=== PATIENT | male | born 1995 | race Caucasian/White ===

== ENCOUNTER 2023-01-24 09:29 | Outpatient (AMB) | payer OTHER, SELFPAY ==
--- NOTE | 2023-01-24 09:30 | MHC.PC.OV ---
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 Person Required: No Accompanied by: Significant Other Allergies No Known Allergies Allergy (Verified 01/24/23 09:52) Medication List - Last Reconciled 01/24/23 by Mouna Torres MD aripiprazole (Abilify) 5 mg PO DAILY clonazepam 0.5 mg PO BID dextroamphetamine-amphetamine 30 mg (Adderall) 30 mg PO BID gabapentin 100 mg PO TID lamotrigine 100 mg PO DAILY ondansetron HCl 8 mg PO Q8H Tobacco use date assessed: 01/24/23 Dental Screening Dental Screen Date: 01/24/23 Did you have a dental visit in the last 12 months?: Yes Did you have a dental problem in the last 6 months where you did not have access to dental care?: No Was dental information given to patient?: Patient has dentist HPI HPI Comments History of Present Illness Details This is 27-year-old male that comes with female partner to establish care. He was asking for a liver function test due to chronic alcoholism and drinking alcohol daily over 6 drinks a day. I recommend to cut down on drinking alcohol and I told him that nurse navigator was available for him to talk today about outpatient alcohol rehab but he declines. He does have severe recurrent major depression and anxiety follow by Psychiatry as well as ADD. He said he has been having Adderall since he is 2 years old. He said he cannot discontinue it because he does not function well. 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 He occasionally has nausea relieved by ondansetron. Occasional palpitations and would like to rule out cardiomegaly due to alcohol. No chest pain or shortness of breath. I told him that clonazepam and gabapentin mixed with alcohol can increase sedation and be detrimental for his health. [facility] Medical History (Updated 01/24/23 @ 10:06 by Mouna Torres MD) Neuropathy Surgical History (Updated 01/24/23 @ 09:55 by Mouna Torres MD) Right hand fracture Family History Mother Skin cancer Father No problems noted. 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 1. Little interest or pleasure in doing things: not at all 2. Feeling down, depressed, or hopeless: not at all 3. Trouble falling or staying asleep, or sleeping too much: nearly every day 4. Feeling tired or having little energy: nearly every day 5. Poor appetite or overeating: nearly every day 6. Feeling bad about yourself - or that you are a failure or have let yourself or your family down: nearly every day 7. Trouble concentrating on things, such as reading the newspaper or watching television: nearly every day 8. Moving or speaking so slowly that other people could have noticed. Or the opposite - being so fidgety or restless that you have been moving around a lot more than usual: nearly every day 9. Thoughts that you would be better off or of hurting yourself in some way: not at all Total score: 18 Depression Screening Interpretation: Positive (no suicidal thoughts) Depression Screening Follow-up: Existing condition and In treatment 14924 - PHQ-9 Billing: Yes Source: Developed by Drs. Vitor Palacios, Latanya Romero, Lizandro Barone and colleagues, with an educational rinku from [employer]. Thrive Questionnaire Date Thrive assessed: 01/24/23 I am a: Patient What is your living situation today?: I have a steady place to live Within the past 12 months, did the food you bought not last and you didn't have the money to get more?: Never true Within the past 12 months, did you worry whether your food would run out before you got money to buy more?: Never true Do you have trouble paying for medicines?: No Do you have trouble getting transportation to medical appointments?: No Do you have trouble paying your heating and electricity bill?: No Do you have trouble taking care of your child, family member or friend?: No Do you have trouble with day-to-day activities such as bathing, preparing meals, shopping, managing finances, etc.?: No Are you currently unemployed and looking for a job?: No Are you interested in more education?: No Please select the resources that you would like help with: Utilities Currently or been in a relationship where the following occur: no concerns reported AUDIT C Alcohol Use Questionnaire (AUDIT-C) 1. How often do you have a drink containing alcohol?: 4 or more times a week 2. How many drinks containing alcohol do you have on a typical day when you are drinking?: 7 to 9 (Vodka ) 3. How often do you have six or more drinks on one occasion?: Daily or almost daily Total Score: 11 Score Reviewed/Action Taken: Yes SRINIVAS-7 AMB Questionnaire SRINIVAS-7 Date SRINIVAS - 7 assessed: 01/24/23 Feeling nervous, anxious, or on edge: 3 = Nearly every day Not being able to stop or control worryin = Nearly every day Worrying too much about different things: 3 = Nearly every day Trouble relaxin = Nearly every day Being so restless that it is hard to sit still: 3 = Nearly every day Becoming easily annoyed or irritable: 3 = Nearly every day Feeling afraid as if something awful might happen: 3 = Nearly every day Total SRINIVAS-7 score (0-4 normal; 5-9 mild; 10-14 moderate; 15-21 severe): 21 Source: Developed by Drs. Vitor Palacios, Latanya Romero, Lizandro Barone and colleagues, with an educational rinku from [employer]. SRINIVAS-7 Assessment Billing SRINIVAS-7 Assessment Tool: SRINIVAS-7 Assessment 46856 Review of Systems Const All systems reviewed & are unremarkable except as noted in HPI and below Eyes Reports no additional complaints, Denies change in vision and Denies other visual disturbances Card Denies chest pain at rest, Denies chest pain with activity, Denies edema, Denies irregular heart rhythm, Denies claudication, Denies dyspnea, Denies dyspnea on exertion, Denies orthopnea, Denies paroxysmal nocturnal dyspnea and Denies slow heart rate Resp Denies cough, Denies dyspnea and Denies dyspnea on exertion GI Denies abdominal pain, Denies change in bowel habits, Denies excessive flatus, Denies nausea and Denies vomiting Denies urinary hesitancy, Denies urinary incontinence and Denies urinary urgency Musc Denies abnormal gait, Denies atrophy, Denies deformity and Denies limited range of motion Skin/Breast Denies bleeding lesions, Denies changing lesions and Denies rash Neuro Denies abnormal gait and Denies lack of coordination Psych Reports anxiety and Reports depression Physical exam (Primary Care) Vital Signs: Last Vital Signs Pulse 100 01/24/23 09:32 BP 112/68 01/24/23 09:32 Pulse Ox 98 01/24/23 09:32 Oxygen Delivery Method Room Air 01/24/23 09:32 BMI result Body Mass Index 29.9 Tobacco/Smoking Status: Tobacco use Status Tobacco use date assessed 01/24/23 01/24/23 09:48 Patient Tobacco Use Status Never used Tobacco 01/24/23 09:48 e-Cigarette/Vaping Use Currently Using 01/24/23 09:48 PHQ-9: PHQ-9 Score PHQ-9: Total score 18 01/24/23 09:48 Depression Screening Interpretation: Positive (no suicidal thoughts) Depression Screening Follow-up: Existing condition and In treatment Thrive Assessment: Date of Thrive Assessment Date Thrive assessed 01/24/23 01/24/23 09:48 Currently or been in a relationship where the following occur: no concerns reported Eyes General: appearance normal, both eyes and all related structures Eyelids: Yes eyelids normal Conjunctivae: conjunctivae normal Neck Neck: Yes normal visual inspection and Yes supple Resp Effort & Inspection: normal respiratory effort Auscultation: clear to auscultation bilaterally Cardio Jugular venous distension: no JVD Rate: regular rate Rhythm: regular rhythm Heart sounds: S1 normal heart sound present and S2 normal heart sound present Extrem General: Yes full ROM Psych Affect: Anxious affect present Attitude: cooperative Assessment and Plan Assessment & Plan (1) Severe recurrent major depression: Code(s): F33.2 - Major depressive disorder, recurrent severe without psychotic features Plan: Continue Abilify. Follow-up with psychiatry. (2) SRINIVAS (generalized anxiety disorder): Code(s): F41.1 - Generalized anxiety disorder Plan: Continue benzodiazepines as needed. Follow-up with psychiatry. Do not advised to use benzodiazepines with alcohol. (3) Alcoholism: Code(s): F10.20 - Alcohol dependence, uncomplicated Plan: Try to cut down on drinking alcohol. (4) ADD (attention deficit disorder): Code(s): F98.8 - Other specified behavioral and emotional disorders with onset usually occurring in childhood and adolescence Plan: Continue Adderall. Follow-up with psychiatry. (5) Nausea: Code(s): R11.0 - Nausea Plan: Continue ondansetron. (6) Neuropathy: Code(s): G62.9 - Polyneuropathy, unspecified Plan: Continue gabapentin. Do not advised to use gabapentin with alcohol. Orders: Orders Comprehensive Met. Panel Today F33.2 - Major depressive disorder, recurrent severe without psychotic features US abdomen comp w elastography Today F10.20 - Alcohol dependence, uncomplicated ECG 12 lead EKG Today R00.2 - Palpitations Coding Level of Care Code New Pt Level 4 (27656) Diagnoses Severe recurrent major depression F33.2 SRINIVAS (generalized anxiety disorder) F41.1 Alcoholism F10.20 ADD (attention deficit disorder) F98.8 Nausea R11.0 Neuropathy G62.9 Additional Codes SRINIVAS-7 Assessment Billing - SRINIVAS-7 Assessment Tool: SRINIVAS-7 Assessment 42335 ([id number]) Time Spent (min) 22
[2023-01-24 09:32] VITALS: BP 112/68; PULSE 100; O2SAT 98; BMI 29.9
== END 2023-01-24 10:08 | disposition home or self-care (01) ==
PROVIDERS: PCP Internal Medicine; Visit Provider Internal Medicine
DX: F33.2 Major depressive disorder, recurrent severe without psychotic features (principal); F41.1 Generalized anxiety disorder; F10.20 Alcohol dependence, uncomplicated; F98.8 Other specified behavioral and emotional disorders with onset usually occurring in childhood and adolescence; R11.0 Nausea; G62.9 Polyneuropathy, unspecified
CPT/HCPCS: 99204

== ENCOUNTER 2023-01-24 10:18 | Outpatient (REF) | payer OTHER, SELFPAY ==
--- NOTE | 2023-01-24 10:26 | ECG_ITS ---
Test Reason : r00.2 Blood Pressure : / mmHG Vent. Rate : 084 BPM Atrial Rate : 084 BPM P-R Int : 144 ms QRS Dur : 094 ms QT Int : 354 ms P-R-T Axes : 043 084 061 degrees QTc Int : 418 ms Normal sinus rhythm Normal ECG No previous ECGs available Referred By: Mouna Torres Electronically Signed By:Porfirio Thompson
[2023-01-24 12:00] LABS: Alanine Aminotransferase 52 U/L (0-40); Alkaline Phosphatase 84 U/L (39-117); Anion Gap 13 (12-20); Aspartate Amino Transferase 31 U/L (5-37); Bilirubin Total 0.4 mg/dL (0.0-1.0); Blood Urea Nitrogen 9 mg/dL (9-16); Calcium 9.3 mg/dL (8.4-10.2); Carbon Dioxide 27 mmol/L (22-29); Chloride 105 mmol/L (96-108); Estimated Glomerular Filt Rate > 60; Glucose Random 88 mg/dL (60-115); Potassium 3.9 mmol/L (3.3-5.1); Sodium 141 mmol/L (135-145); Total Protein 7.2 g/dL (6.5-8.0)
== END 2023-01-24 10:19 | disposition home or self-care (01) ==
LOC: HO.LAB 10:18
PROVIDERS: PCP Internal Medicine; Visit Provider Internal Medicine
DX: F33.2 Major depressive disorder, recurrent severe without psychotic features (principal); R00.2 Palpitations
CPT/HCPCS: 36415; 80053; 93005

== ENCOUNTER → 2023-01-24 10:26 | Outpatient (BNV) | payer OTHER, SELFPAY | PROVIDERS: PCP Internal Medicine; Visit Provider Internal Medicine Cardiovascular Disease | DX: R00.2 Palpitations (principal) | CPT/HCPCS: 93010 ==

== ENCOUNTER 2023-08-01 07:33 | Outpatient (AMB) | payer OTHER, SELFPAY ==
[2023-08-01 07:36] VITALS: BP 120/76; BMI 32.5
--- NOTE | 2023-08-01 07:36 | MHC.PC.OV ---
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 Accompanied by: partner Allergies No Known Allergies Allergy (Verified 08/01/23 07:48) Medication List - Last Reconciled 08/01/23 by Mouna Torres MD clonazepam 0.5 mg PO BID dextroamphetamine-amphetamine 30 mg (Adderall) 30 mg PO BID lamotrigine 100 mg PO DAILY Tobacco use date assessed: 08/01/23 Dental Screening Dental Screen Date: 08/01/23 Did you have a dental visit in the last 12 months?: No Did you have a dental problem in the last 6 months where you did not have access to dental care?: No Was dental information given to patient?: Patient has dentist HPI HPI Comments History of Present Illness Details This is a 28-year-old male with severe recurrent major depression and alcoholism that comes for his physical exam accompanied by girlfriend. He is follow by Psychiatry for his depression which he does not feel comfortable with his psychiatrist. No suicidal thoughts at the moment. He drinks alcohol daily since he is 14 years old. Started with 4 beers a day that has increased to 10 alcoholic drinks per day for the last few years. He does have occasional diarrhea and heartburn most likely secondary to alcohol. I advised to cut down on drinking alcohol. He is interested in rehab involving ketamine therapy or Vivitrol. I did send a message immediately to addiction Medicine specialist Terri Polanco and due to his elevated PHQ-9 behavioral health specialist [place] talk with him after the physical exam. [facility] Medical History Neuropathy Surgical History Right hand fracture Family History Mother Skin cancer Father No problems noted. Maternal Grandfather Lung cancer Maternal Grandmother Lung cancer Social History Housing: Apartment Alcohol intake: current Alcohol intake frequency: 3 or more drinks per day Alcohol type: hard liquor Patient Tobacco Use Status: Never used Tobacco e-Cigarette/Vaping Use: Currently Using service: No Current occupational status: unemployed Cognitive needs: No Hearing needs: No Vision needs: No Questionnaire PHQ-9 Over the last 2 weeks, how often have you been bothered by any of the following problems? 1. Little interest or pleasure in doing things: nearly every day 2. Feeling down, depressed, or hopeless: several days 3. Trouble falling or staying asleep, or sleeping too much: nearly every day 4. Feeling tired or having little energy: nearly every day 5. Poor appetite or overeating: nearly every day 6. Feeling bad about yourself - or that you are a failure or have let yourself or your family down: nearly every day 7. Trouble concentrating on things, such as reading the newspaper or watching television: nearly every day 8. Moving or speaking so slowly that other people could have noticed. Or the opposite - being so fidgety or restless that you have been moving around a lot more than usual: nearly every day 9. Thoughts that you would be better off or of hurting yourself in some way: not at all Total score: 22 Depression Screening Interpretation: Positive (no suicidal thoughts) Depression Screening Follow-up: Existing condition, In treatment and Community Mental Health Worker F/U Depression Screening Done: Yes 71416 - PHQ-9 Billing: Yes Source: Developed by Drs. Vitor Palacios, Latanya Romero, Lizandro Barone and colleagues, with an educational rinku from [employer]. Thrive Questionnaire Date Thrive assessed: 08/01/23 I am a: Patient What is your living situation today?: I have a steady place to live Within the past 12 months, did the food you bought not last and you didn't have the money to get more?: Never true Within the past 12 months, did you worry whether your food would run out before you got money to buy more?: Never true Do you have trouble paying for medicines?: No Do you have trouble getting transportation to medical appointments?: No Do you have trouble paying your heating and electricity bill?: No Do you have trouble taking care of your child, family member or friend?: No Do you have trouble with day-to-day activities such as bathing, preparing meals, shopping, managing finances, etc.?: No Are you currently unemployed and looking for a job?: No Are you interested in more education?: No Please select the resources that you would like help with: None Currently or been in a relationship where the following occur: no concerns reported THRIVE Score: 0 AUDIT C Alcohol Use Questionnaire (AUDIT-C) 1. How often do you have a drink containing alcohol?: 4 or more times a week 2. How many drinks containing alcohol do you have on a typical day when you are drinking?: 3 or 4 3. How often do you have six or more drinks on one occasion?: Never Total Score: 5 Score Reviewed/Action Taken: Yes SRINIVAS-7 AMB Questionnaire SRINIVAS-7 Date SRINIVAS - 7 assessed: 08/01/23 Feeling nervous, anxious, or on edge: 3 = Nearly every day Not being able to stop or control worryin = Several days Worrying too much about different things: 1 = Several days Trouble relaxin = Several days Being so restless that it is hard to sit still: 1 = Several days Becoming easily annoyed or irritable: 1 = Several days Feeling afraid as if something awful might happen: 0 = Not at all Total SRINIVAS-7 score (0-4 normal; 5-9 mild; 10-14 moderate; 15-21 severe): 8 Source: Developed by Drs. Vitor Palacios, Latanya Romero, Lizandro Barone and colleagues, with an educational rinku from [employer]. SRINIVAS-7 Assessment Billing SRINIVAS-7 Assessment Tool: SRINIVAS-7 Assessment 85330 Review of Systems Const All systems reviewed & are unremarkable except as noted in HPI and below Eyes Reports no additional complaints, Denies change in vision and Denies other visual disturbances Card Denies chest pain at rest, Denies chest pain with activity, Denies edema, Denies irregular heart rhythm, Denies claudication, Denies dyspnea, Denies dyspnea on exertion, Denies orthopnea, Denies paroxysmal nocturnal dyspnea and Denies slow heart rate Resp Denies cough, Denies dyspnea and Denies dyspnea on exertion GI Denies abdominal pain, Denies change in bowel habits, Denies excessive flatus, Reports heartburn, Denies nausea and Denies vomiting Denies urinary hesitancy, Denies urinary incontinence and Denies urinary urgency Musc Denies abnormal gait, Denies atrophy, Denies deformity and Denies limited range of motion Skin/Breast Denies bleeding lesions, Denies changing lesions and Denies rash Neuro Denies abnormal gait and Denies lack of coordination Physical exam (Primary Care) Vital Signs: Last Vital Signs BP 120/76 08/01/23 07:36 BMI result Body Mass Index 32.5 Tobacco/Smoking Status: Tobacco use Status Tobacco use date assessed 08/01/23 08/01/23 07:46 Patient Tobacco Use Status Never used Tobacco 08/01/23 07:46 e-Cigarette/Vaping Use Currently Using 08/01/23 07:46 PHQ-9: PHQ-9 Score PHQ-9: Total score 22 08/01/23 08:47 Depression Screening Interpretation: Positive (no suicidal thoughts) Depression Screening Follow-up: Existing condition, In treatment and Community Mental Health Worker F/U Thrive Assessment: Date of Thrive Assessment Date Thrive assessed 08/01/23 08/01/23 07:46 Currently or been in a relationship where the following occur: no concerns reported Const Orientation/consciousness: patient oriented x3 HENMT Head: Yes normal to inspection, Yes normocephalic and Yes atraumatic Ears: external ears normal Eyes General: appearance normal, both eyes and all related structures Eyelids: Yes eyelids normal Conjunctivae: conjunctivae normal Neck Neck: Yes normal visual inspection and Yes supple Resp Effort & Inspection: normal respiratory effort Auscultation: clear to auscultation bilaterally Cardio Jugular venous distension: no JVD Rate: regular rate Rhythm: regular rhythm Heart sounds: S1 normal heart sound present and S2 normal heart sound present GI Inspection: Yes normal to inspection Palpation (GI): Soft to palpation and nontender Auscultation: normal bowel sounds Skin General skin exam: no rashes or lesions noted Neuro General: patient oriented x3 and no focal motor deficits Extrem General: Yes full ROM Psych Appearance: grossly normal Assessment and Plan Assessment & Plan (1) Physical exam: Code(s): Z00.00 - Encounter for general adult medical examination without abnormal findings Plan: Repeat in a year. (2) Severe recurrent major depression: Code(s): F33.2 - Major depressive disorder, recurrent severe without psychotic features Qualifiers: Psychotic features: without psychotic features Qualified Code(s): F33.2 - Major depressive disorder, recurrent severe without psychotic features Plan: Follow-up with psychiatry. (3) Alcoholism: Code(s): F10.20 - Alcohol dependence, uncomplicated Plan: Advised to cut down on drinking alcohol. Patient is aware that there is an outpatient rehab at [facility]. Waiting for response from Terri Polanco. Orders: Orders Lipid Panel Today Z00.00 - Encounter for general adult medical examination without abnormal findings Comprehensive [place]. Panel Fast Today Z00.00 - Encounter for general adult medical examination without abnormal findings Vitamin B1 Today F10.20 - Alcohol dependence, uncomplicated Complete Blood Count Auto Diff Today D64.9 - Anemia, unspecified, G62.9 - Polyneuropathy, unspecified Vitamin B12 and Folate Today G62.9 - Polyneuropathy, unspecified US abdomen comp w elastography Today F10.20 - Alcohol dependence, uncomplicated Referrals Gastroenterology Referral K21.9 - Gastro-esophageal reflux disease without esophagitis Coding Level of Care Code Est Pt Prev Care 18-39y([id number]) Diagnoses Physical exam Z00.00 Severe episode of recurrent major depressive disorder, without psychotic features F33.2 Psychotic features: without psychotic features Alcoholism F10.20 Additional Codes SRINIVAS-7 Assessment Billing - SRINIVAS-7 Assessment Tool: SRINIVAS-7 Assessment 19070 ([id number]) Time Spent (min) 35
== END 2023-08-01 08:41 | disposition home or self-care (01) ==
PROVIDERS: PCP Internal Medicine; Visit Provider Internal Medicine
DX: Z00.00 Encounter for general adult medical examination without abnormal findings (principal); F33.2 Major depressive disorder, recurrent severe without psychotic features; F10.20 Alcohol dependence, uncomplicated
CPT/HCPCS: 99395

== ENCOUNTER 2023-08-01 09:42 | Outpatient (AMB) | payer OTHER, SELFPAY ==
[2023-08-01 09:50] VITALS: BP 120/80; PULSE 96; O2SAT 96
--- NOTE | 2023-08-01 09:50 | A.OFFVISCC_ITS ---
Intake Vital Signs 08/01/23 09:50 BP 120/80 Blood Pressure Location Rt radial Position Sitting Pulse 96 Pulse Source Pulse Oximeter Pulse Oximetry (%) 96 Oxygen Delivery Method Room Air Intake Visit Reasons: Walk in Allergies No Known Allergies Allergy (Verified 08/01/23 07:48) HPI Walk in HPI Details Patient presents for AUD treatment and eval Drinking 10 nips per day previously drinking 3-4 sleeves per day starting to taper himself 1-2 no history of treatment ATS Naltrexone prescribed by psychiatrist No history of seizure history tremors, anxiety Reporting he feels like he is unable to function or tallk to anyone without having alcohol Lives with Jose Miguel (partner) 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 Maternal Grandfather Lung cancer Maternal Grandmother Lung cancer Social History Housing: Apartment Alcohol intake: current Alcohol intake frequency: 3 or more drinks per day Alcohol type: hard liquor Patient Tobacco Use Status: Never used Tobacco e-Cigarette/Vaping Use: Currently Using service: No Current occupational status: unemployed Cognitive needs: No Hearing needs: No Vision needs: No Review of Systems Const Reports difficulty sleeping, Reports lethargy, Reports malaise and Reports poor appetite Psych Reports anxiety, Reports depression, Reports difficulty concentrating and Reports anhedonia Physical Exam Vital Signs: Last Vital Signs Pulse 96 08/01/23 09:50 BP 120/80 08/01/23 09:50 Pulse Ox 96 08/01/23 09:50 Oxygen Delivery Method Room Air 08/01/23 09:50 Const General: cooperative, no acute distress and anxious Nutritional Appearance: average body habitus Orientation/consciousness: patient oriented x3 Limitations: no limitations Neuro General: patient oriented x3 Psych Affect: normal affect Attitude: cooperative Thought process: Normal thought process present Thought content: Normal thought content present Insight: Fair insight present (Psych) Judgement: Fair judgement present (Psych) Results AMB 14 Panel Urine Drug Screen Urine Marijuana (THC) Positive Last Edit by Danae Maharaj RN on 08/01/23 09:58 Urine Cocaine Negative Last Edit by Danae Maharaj RN on 08/01/23 09:58 Urine Morphine Negative Last Edit by Danae Maharaj RN on 08/01/23 09:58 Urine Methamphetamine Negative Last Edit by Danae Maharaj RN on 08/01/23 09:58 Urine Amphetamine Positive Last Edit by Danae Maharaj RN on 08/01/23 09:58 Urine Benzodiazepine Negative Last Edit by Danae Maharaj RN on 08/01/23 09 :58 Urine Barbiturates Negative Last Edit by Danae Maharaj RN on 08/01/23 09:5 8 Urine Methadone Negative Last Edit by Danae Maharaj RN on 08/01/23 09:58 Urine Buprenorphine Negative Last Edit by Danae Maharaj RN on 08/01/23 09: 58 Urine Tricyclic Antidepressant Negative Last Edit by Danae Maharaj RN on 08/01/23 09:58 Urine MDMA Negative Last Edit by Danae Maharaj RN on 08/01/23 09:58 Urine Oxycodone Negative Last Edit by Danae Maharaj RN on 08/01/23 09:58 Urine Phencyclidine Negative Last Edit by Danae Maharaj RN on 08/01/23 09: 58 Urine Propoxyphene Negative Last Edit by Danae Maharaj RN on 08/01/23 09:5 8 Results Reviewed Results Reviewed: Laboratory Last Values POC Urine Buprenorphine Negative 08/01/23 09:56 POC Urine Morphine Negative 08/01/23 09:56 POC Urine Oxycodone Negative 08/01/23 09:56 POC Urine Methadone Negative 08/01/23 09:56 POC Urine Propoxyphene Negative 08/01/23 09:56 POC Urine Barbiturates Negative 08/01/23 09:56 POC U Tricyclic Antidpr Negative 08/01/23 09:56 POC Urine PCP Negative 08/01/23 09:56 POC Ur Amphetamines Positive 08/01/23 09:56 POC Ur Methamphetamine Negative 08/01/23 09:56 POC Urine MDMA Negative 08/01/23 09:56 POC Ur Benzodiazepine Negative 08/01/23 09:56 POC Urine Cocaine Negative 08/01/23 09:56 POC Ur Marijuana (THC) Positive 08/01/23 09:56 Assessment & Plan Assessment & Plan (1) Alcohol use disorder, severe, dependence: Code(s): F10.20 - Alcohol dependence, uncomplicated Plan: * treatment options presented to patient, including ATS admission. Patient verbalzied interest in admission, however wouldhave to go home and prep for that * provided with list of ATS facilities and other information * naltrexone and vitamins ordered * risk reduction information provided * patient to follow up Orders: Orders AMB 14 Panel Urine Drug Screen 08/01/23 F10.20 - Alcohol dependence, uncomplicated Medications: New thiamine HCl (vitamin B1) 100 mg PO DAILY 30 tabs 2RF naltrexone take 1/2 tab daily for 3 days then increase to one tab daily 50 mg PO DAILY 30 tabs 0RF folic acid 1 mg PO DAILY 30 tabs 2RF Coding Level of Care Code New Pt Level 4 (24104) Diagnoses Alcohol use disorder, severe, dependence F10.20
== END 2023-08-01 10:23 | disposition home or self-care (01) ==
PROVIDERS: PCP Internal Medicine; Visit Provider Nurse Practitioner Psychiatric/Mental Health
DX: F10.20 Alcohol dependence, uncomplicated (principal)
CPT/HCPCS: 99204

== ENCOUNTER → 2023-08-01 09:42 | Outpatient (BNVA) | payer OTHER, SELFPAY | PROVIDERS: PCP Internal Medicine; Visit Provider Nurse Practitioner Psychiatric/Mental Health | DX: F10.20 Alcohol dependence, uncomplicated (principal) | CPT/HCPCS: 80305; 99202 ==

== ENCOUNTER 2023-08-16 14:34 | Outpatient (AMB) | payer OTHER, SELFPAY ==
--- NOTE | 2023-08-16 14:36 | MHC.AM.SUB ---
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 Allergies No Known Allergies Allergy (Verified 08/16/23 14:43) Medication List - Last Reconciled 08/16/23 by Magali Pérez, CLIVE clonazepam 1 mg PO BID dextroamphetamine-amphetamine 30 mg (Adderall) 30 mg PO BID folic acid 1 mg PO DAILY gabapentin 200 mg PO BID lamotrigine 100 mg PO DAILY naltrexone 50 mg PO DAILY thiamine HCl (vitamin B1) 100 mg PO DAILY Do you need a note to return to daycare/school/sports/work: No HPI MAT HPI Details Patient presents for follow up for AUD His last visit was 2 weeks ago, he has been taking the naltrexone daily, tolerating it well He is interested in a middle school coach at this time He is also interested in [facility] referral. Reports his current psych provider speaks Romansh as a second language and he feels as though some things are lost in translation He was previously drinking a sleeve of nips a day, he has transitioned to drinking beer only, states he drinks 2 40oz beers daily. Denies any withdrawal symptoms [facility] Medical History Neuropathy Surgical History Right hand fracture Family History Mother Skin cancer Father No problems noted. Maternal Grandfather Lung cancer Maternal Grandmother Lung cancer Social History Housing: Apartment Alcohol intake: current Alcohol intake frequency: 3 or more drinks per day Alcohol type: hard liquor Patient Tobacco Use Status: Never used Tobacco e-Cigarette/Vaping Use: Currently Using service: No Current occupational status: unemployed Cognitive needs: No Hearing needs: No Vision needs: No Review of Systems Const Reports as per HPI Physical Exam Vital Signs: Last Vital Signs Pulse 112 H 08/16/23 14:41 BP 110/70 08/16/23 14:41 Pulse Ox 96 08/16/23 14:41 Oxygen Delivery Method Room Air 08/16/23 14:41 Const General: cooperative and no acute distress; No diaphoretic Resp Effort & Inspection: normal respiratory effort Psych Appearance: grossly normal Mental Status: mental status grossly normal Speech and movement: Normal speech and movement present Affect: Blunted affect present Attitude: cooperative Thought content: Normal thought content present Assessment & Plan Assessment & Plan (1) Alcohol use disorder, severe, dependence: Code(s): F10.20 - Alcohol dependence, uncomplicated Plan: -Discussed harm reduction strategies -Educated on importance and rationale for taking B vitamins -Reviewed with him not to try and taper too quickly -He is going to transition from 40oz beers to a six pack or 12oz beers for more precise measurements for tapering down -Discussed vivitrol with him, he would like to continue with PO naltrexone -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
[2023-08-16 14:41] VITALS: BP 110/70; PULSE 112; O2SAT 96
== END 2023-08-16 15:44 | disposition home or self-care (01) ==
PROVIDERS: PCP Internal Medicine; Visit Provider Nurse Practitioner Family
DX: F10.20 Alcohol dependence, uncomplicated (principal)
CPT/HCPCS: 99213

== ENCOUNTER → 2023-08-16 14:34 | Outpatient (BNVA) | payer OTHER, SELFPAY | PROVIDERS: PCP Internal Medicine; Visit Provider Nurse Practitioner Family | DX: F10.20 Alcohol dependence, uncomplicated (principal); Z79.899 Other long term (current) drug therapy | CPT/HCPCS: 99212 ==

== ENCOUNTER 2023-10-24 14:38 | Outpatient (AMB) | payer OTHER, SELFPAY ==
--- NOTE | 2023-10-24 14:38 | A.OFFVISCC_ITS ---
Vital Signs 10/24/23 14:40 BP 132/78 Blood Pressure Location Lt brachial Position Sitting Pulse 110 H Pulse Source Pulse Oximeter Pulse Oximetry (%) 96 Oxygen Delivery Method Room Air Intake Visit Reasons: MAT Visit Allergies No Known Allergies Allergy (Verified 08/16/23 14:43) HPI HPI MAT Visit: Details: Patient presents for MAT visit Reports he has been doing well, abstaining from alcohol Is hosting a bachelor constitution party this weekend, and is concerned he will be unable to resist having a drink States he has done extensive research on disulfiram and would like a script as a deterent and reassurance to himself that he won't drink States he has 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 Maternal Grandfather Lung cancer Maternal Grandmother Lung cancer Social History Housing: Apartment Alcohol intake: current Alcohol intake frequency: 3 or more drinks per day A lcohol type: hard liquor Patient Tobacco Use Status: Never used Tobacco e-Cigarette/Vaping Use: Currently Using service: No Current occupational status: unemployed Cognitive needs: No Hearing needs: No Vision needs: No Review of Systems Const Reports as per HPI Physical Exam Vital Signs: Last Vital Signs Pulse 110 H 10/24/23 14:40 BP 132/78 10/24/23 14:40 Pulse Ox 96 10/24/23 14:40 Oxygen Delivery Method Room Air 10/24/23 14:40 Const General: cooperative and no acute distress Resp Effort & Inspection: normal respiratory effort and able to speak in complete sentences Psych Appearance: grossly normal Mental Status: mental status grossly normal Speech and movement: Normal speech and movement present Affect: normal affect Attitude: cooperative Thought process: Normal thought process present Assessment & Plan Assessment & Plan (1) Alcohol use disorder, severe, dependence: Code(s): F10.20 - Alcohol dependence, uncomplicated Category: Medical Plan: -Start disulfiram 250mg day, education provided on risk of drinking alcohol, using mouthwash with alcohol, or even alcohol based 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
[2023-10-24 14:40] VITALS: BP 132/78; PULSE 110; O2SAT 96
== END 2023-10-24 15:14 | disposition home or self-care (01) ==
PROVIDERS: PCP Internal Medicine; Visit Provider Nurse Practitioner Family
DX: F10.20 Alcohol dependence, uncomplicated (principal)
CPT/HCPCS: 99213

== ENCOUNTER → 2023-10-24 14:38 | Outpatient (BNVA) | payer OTHER, SELFPAY | PROVIDERS: PCP Internal Medicine; Visit Provider Nurse Practitioner Family | DX: F10.20 Alcohol dependence, uncomplicated (principal) | CPT/HCPCS: 99212 ==

== ENCOUNTER 2023-11-07 14:46 | Outpatient (AMB) | payer OTHER, SELFPAY ==
[2023-11-07 14:43] VITALS: BP 130/82; PULSE 113; O2SAT 96
--- NOTE | 2023-11-07 14:43 | A.OFFVISCC_ITS ---
Vital Signs 11/07/23 14:43 BP 130/82 Blood Pressure Location Lt brachial Position Sitting Pulse 113 H Pulse Source Pulse Oximeter Pulse Oximetry (%) 96 Oxygen Delivery Method Room Air Intake Visit Reasons: MAT Visit Allergies No Known Allergies Allergy (Verified 08/16/23 14:43) HPI HPI MAT Visit: Details: Patient presents for AUD treatment and follow up States he has been unable to obtain his antabuse, has been told by multiple pharmacies that the medication is on back order Reports he had mistakenly believed the vivitrol injection was antabuse, but would like to move forward with receiving vivitrol States he did not drink during the bachelor libertarian a few weekends ago, this had been a significant concern of his Has been keeping busy with work HPI Comments Details: Patient presents for MAT visit [facility] Medical History Neuropathy Surgical History Right hand fracture Family History Mother Skin cancer Father No problems noted. Maternal Grandfather Lung cancer Maternal Grandmother Lung cancer Social History Housing: Apartment Alcohol intake: current Alcohol intake frequency: 3 or more drinks per day Alcohol type: hard liquor Patient Tobacco Use Status: Never used Tobacco e-Cigarette/Vaping Use: Currently Using service: No Current occupational status: unemployed Cognitive needs: No Hearing needs: No Vision needs: No Review of Systems Const Reports as per HPI Physical Exam Vital Signs: Last Vital Signs Pulse 113 H 11/07/23 14:43 BP 130/82 11/07/23 14:43 Pulse Ox 96 11/07/23 14:43 Oxygen Delivery Method Room Air 11/07/23 14:43 Const General: cooperative and no acute distress Resp Effort & Inspection: normal respiratory effort and able to speak in complete sentences Psych Appearance: grossly normal Mental Status: mental status grossly normal Speech and movement: Normal speech and movement present Affect: Blunted affect present Attitude: cooperative Thought process: Normal thought process present Assessment & Plan Assessment & Plan (1) Alcohol use disorder, severe, dependence: Code(s): F10.20 - Alcohol dependence, uncomplicated Category: Medical Plan: -Naltrexone refilled -Follow up telehealth 3 weeks, expressed to him office would call to arrange an appointment sooner if his injection arrives prior to next appt Medications: Refilled naltrexone 50 mg PO DAILY 30 tabs 0RF
== END 2023-11-07 15:01 | disposition home or self-care (01) ==
LOC: HO.HCC 14:46
PROVIDERS: PCP Internal Medicine; Visit Provider Nurse Practitioner Family
DX: F10.20 Alcohol dependence, uncomplicated (principal)
CPT/HCPCS: 99213

== ENCOUNTER → 2023-11-07 14:46 | Outpatient (BNVA) | payer OTHER, SELFPAY | PROVIDERS: PCP Internal Medicine; Visit Provider Nurse Practitioner Family | DX: F10.20 Alcohol dependence, uncomplicated (principal); Z79.899 Other long term (current) drug therapy; Z51.81 Encounter for therapeutic drug level monitoring | CPT/HCPCS: 99212 ==

== ENCOUNTER 2024-04-09 09:57 | Outpatient (AMB) | payer OTHER, SELFPAY ==
[2024-04-09 09:59] VITALS: BP 146/100; BMI 31.8
--- NOTE | 2024-04-09 09:59 | MHC.PC.OV ---
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 Accompanied by: Significant Other Allergies No Known Allergies Allergy (Verified 04/09/24 10:16) Medication List - Last Reconciled 04/09/24 by Mouna Torres MD clonazepam 1 mg PO BID dextroamphetamine-amphetamine 30 mg (Adderall) 30 mg PO BID folic acid 1 mg PO DAILY gabapentin 200 mg PO BID lamotrigine 100 mg PO DAILY methylprednisolone 2 mg PO DAILY naltrexone 50 mg PO DAILY naltrexone microspheres ER (Vivitrol) 380 mg IM Q4W thiamine HCl (vitamin B1) 100 mg PO DAILY Tobacco use date assessed: 08/01/23 Dental Screening Dental Screen Date: 08/01/23 HPI HPI Comments History of Present Illness Details This is a 29-year-old male with severe recurrent major depression, anxiety,ADD and alcohol use disorder with severe dependence that comes today complaining of daytime sleepiness. 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 Sleep study will be ordered. He is accompanied by significant other. Depression, anxiety and ADD are treated by Psychiatry. For his alcohol use he will see [facility] for Vivitrol. He was advised to stop drinking alcohol. [facility] Medical History (Updated 04/09/24 @ 10:29 by Mouna Torres MD) Neuropathy Surgical History Right hand fracture Family History Mother Skin cancer Father No problems noted. Maternal Grandfather Lung cancer Maternal Grandmother Lung cancer Social History (Updated 04/09/24 @ 10:25 by Mouna Torres MD) Housing: Apartment Alcohol intake: current Alcohol intake frequency: 3 or more drinks per day Alcohol type: hard liquor Patient Tobacco Use Status: Former Tobacco user e-Cigarette/Vaping Use: Currently Using service: No Current occupational status: unemployed Cognitive needs: No Hearing needs: No Vision needs: No Questionnaire PHQ-9 Over the last 2 weeks, how often have you been bothered by any of the following problems? 1. Little interest or pleasure in doing things: nearly every day 2. Feeling down, depressed, or hopeless: several days 3. Trouble falling or staying asleep, or sleeping too much: nearly every day 4. Feeling tired or having little energy: nearly every day 5. Poor appetite or overeating: nearly every day 6. Feeling bad about yourself - or that you are a failure or have let yourself or your family down: nearly every day 7. Trouble concentrating on things, such as reading the newspaper or watching television: nearly every day 8. Moving or speaking so slowly that other people could have noticed. Or the opposite - being so fidgety or restless that you have been moving around a lot more than usual: nearly every day 9. Thoughts that you would be better off or of hurting yourself in some way: not at all Total score: 22 Depression Screening Interpretation: Positive (no suicidal thoughts) Depression Screening Follow-up: Existing condition, In treatment, Community Mental Health Worker F/U and Follow-up Visit Requested Depression Screening Done: Yes 25866 - PHQ-9 Billing: Yes Source: Developed by Drs. Vitor Palacios, Latanya Romero, Lizandro Barone and colleagues, with an educational rinku from [employer]. Thrive Questionnaire Date Thrive assessed: 08/01/23 AUDIT C Alcohol Use Questionnaire (AUDIT-C) 1. How often do you have a drink containing alcohol?: 4 or more times a week 2. How many drinks containing alcohol do you have on a typical day when you are drinking?: 10 or more 3. How often do you have six or more drinks on one occasion?: Daily or almost daily Total Score: 12 Score Reviewed/Action Taken: Yes SRINIVAS-7 AMB Questionnaire SRINIVAS-7 Date SRINIVAS - 7 assessed: 08/01/23 Source: Developed by Drs. Vitor Palacios, Latanya Romero, Lizandro Barone and colleagues, with an educational rinku from [employer]. Review of Systems Const All systems reviewed & are unremarkable except as noted in HPI and below Card Denies chest pain at rest, Denies chest pain with activity, Denies edema, Denies irregular heart rhythm, Denies claudication, Denies dyspnea, Denies dyspnea on exertion, Denies orthopnea, Denies paroxysmal nocturnal dyspnea and Denies slow heart rate Resp Denies cough, Denies dyspnea and Denies dyspnea on exertion Denies urinary hesitancy, Denies urinary incontinence and Denies urinary urgency Musc Denies atrophy, Denies deformity and Denies limited range of motion Skin/Breast Denies bleeding lesions, Denies changing lesions and Denies rash Physical exam (Primary Care) Vital Signs: Last Vital Signs BP 146/100 H 04/09/24 09:59 BMI result Body Mass Index 31.8 BMI Assessment/Plan discussion: High BMI High, discussed plan: lifestyle, weight reduction, dietary and physical activity Tobacco/Smoking Status: Tobacco use Status Tobacco use date assessed 08/01/23 04/09/24 10:07 Patient Tobacco Use Status Former Tobacco user 04/09/24 10:25 e-Cigarette/Vaping Use Currently Using 04/09/24 10:25 PHQ-9: PHQ-9 Score PHQ-9: Total score 22 04/09/24 10:18 Depression Screening Interpretation: Positive (no suicidal thoughts) Depression Screening Follow-up: Existing condition, In treatment, Community Mental Health Worker F/U and Follow-up Visit Requested Thrive Assessment: Date of Thrive Assessment Date Thrive assessed 08/01/23 04/09/24 10:07 Resp Effort & Inspection: normal respiratory effort Auscultation: clear to auscultation bilaterally Cardio Jugular venous distension: no JVD Rate: regular rate Rhythm: regular rhythm Heart sounds: S1 normal heart sound present and S2 normal heart sound present Extrem General: Yes full ROM Office Procedures Flu Questionnaire Does the patient have a severe egg allergy?: No Immunizations Fluarix Triv [id number] (PF) 45 mcg (15 mcg x 3)/0.5 mL IM syringe Performing Provider: Mouna Torres MD [facility] Documented (not given) by: OLEG Lopez on 04/09/24 10:13 Reason Not Given: Patient Refused Coding Level of Care Code Est Pt Level 4 (53062) Complex EM visit Add On G2211 Diagnoses Alcohol use disorder, severe, dependence F10.20 Daytime sleepiness R40.0 Severe episode of recurrent major depressive disorder, without psychotic features F33.2 Psychotic features: without psychotic features ADD (attention deficit disorder) F98.8 SRINIVAS (generalized anxiety disorder) F41.1 Time Spent (min) 22 Assessment & Plan Assessment & Plan (1) Alcohol use disorder, severe, dependence: Code(s): F10.20 - Alcohol dependence, uncomplicated Category: Medical Plan: Follow-up with [facility]. (2) Daytime sleepiness: Code(s): R40.0 - Somnolence Category: Medical Plan: Sleep study ordered (3) Severe recurrent major depression: Code(s): F33.2 - Major depressive disorder, recurrent severe without psychotic features Category: Medical Qualifiers: Psychotic features: without psychotic features Qualified Code(s): F33.2 - Major depressive disorder, recurrent severe without psychotic features Plan: Follow-up with psychiatry. (4) ADD (attention deficit disorder): Code(s): F98.8 - Other specified behavioral and emotional disorders with onset usually occurring in childhood and adolescence Category: Medical Plan: Follow-up with psychiatry. (5) SRINIVAS (generalized anxiety disorder): Code(s): F41.1 - Generalized anxiety disorder Category: Medical Plan: Follow-up with psychiatry. Orders: Orders Influenza [id number] Immunization Today Z23 - Encounter for immunization US abdomen comp w elastography Today F10.20 - Alcohol dependence, uncomplicated Vitamin B12 and Folate Today G62.9 - Polyneuropathy, unspecified Comprehensive Met. Panel Today G62.9 - Polyneuropathy, unspecified Complete Blood Count Auto Diff Today G62.9 - Polyneuropathy, unspecified RT home sleep study Today R40.0 - Somnolence Vitamin B1 Today F10.20 - Alcohol dependence, uncomplicated Liver Panel Today F10.20 - Alcohol dependence, uncomplicated Gamma Glutamyl Transpeptidase Today F10.20 - Alcohol dependence, uncomplicated Medications: Refilled naltrexone microspheres ER (Vivitrol) 380 mg IM Q4W 1 ea 12RF naltrexone 50 mg PO DAILY 30 tabs 0RF folic acid 1 mg PO DAILY 30 tabs 2RF thiamine HCl (vitamin B1) 100 mg PO DAILY 30 tabs 2RF
== END 2024-04-09 10:35 | disposition home or self-care (01) ==
PROVIDERS: PCP Internal Medicine; Visit Provider Internal Medicine
DX: F10.20 Alcohol dependence, uncomplicated (principal); R40.0 Somnolence; F33.2 Major depressive disorder, recurrent severe without psychotic features; F98.8 Other specified behavioral and emotional disorders with onset usually occurring in childhood and adolescence; F41.1 Generalized anxiety disorder; Z23 Encounter for immunization

== ENCOUNTER → 2024-04-09 09:57 | Outpatient (BNVA) | payer OTHER, SELFPAY | PROVIDERS: PCP Internal Medicine; Visit Provider Internal Medicine | DX: F10.20 Alcohol dependence, uncomplicated (principal); R40.0 Somnolence; F33.2 Major depressive disorder, recurrent severe without psychotic features; F98.8 Other specified behavioral and emotional disorders with onset usually occurring in childhood and adolescence; F41.1 Generalized anxiety disorder; Z28.21 Immunization not carried out because of patient refusal | CPT/HCPCS: 90471; 96127; 99212 ==

== ENCOUNTER → 2024-06-12 11:13 | Outpatient (REF) | payer OTHER, SELFPAY | LOC: HO.SL 11:13 | PROVIDERS: PCP Internal Medicine; Visit Provider Internal Medicine | DX: G47.33 Obstructive sleep apnea (adult) (pediatric) (principal) | CPT/HCPCS: 95806 ==

== ENCOUNTER → 2024-06-13 11:21 | Outpatient (BNV) | payer OTHER, SELFPAY | PROVIDERS: PCP Internal Medicine; Visit Provider Internal Medicine | DX: G47.33 Obstructive sleep apnea (adult) (pediatric) (principal) | CPT/HCPCS: 95806 ==

== ENCOUNTER 2024-08-05 17:40 | Outpatient (AMB) | payer OTHER, SELFPAY ==
--- NOTE | 2024-08-05 17:42 | MHC.PC.OV ---
Vital Signs 08/05/24 17:45 Height 5 ft 6.54 in Weight 201 lb BMI 31.9 BP 130/80 Blood Pressure Location Lt brachial Position Sitting Intake Visit Reasons: PE Intake Note: Patient here for a physical exam Shank Skinner Required: No Accompanied by: Self / Same As Patient Allergies No Known Allergies Allergy (Verified 08/05/24 17:50) Medication List - Last Reconciled 08/05/24 by Mouna Torres MD clonazepam 1 mg PO BID dextroamphetamine-amphetamine 30 mg (Adderall) 30 mg PO BID gabapentin 200 mg PO BID lamotrigine 100 mg PO DAILY Tobacco use date assessed: 08/05/24 Dental Screening Dental Screen Date: 08/01/23 Did you have a dental visit in the last 12 months?: No Did you have a dental problem in the last 6 months where you did not have access to dental care?: No Was dental information given to patient?: Patient has dentist HPI HPI Comments History of Present Illness Details The patient is a 29-year-old male presenting with concerns discussed during his annual physical examination. He reported an episode approximately two weeks ago when he experienced symptoms suggestive of arrhythmia and elevated blood pressure, recorded at about 160 mmHg, at the emergency room. A diagnosis of Stage 2 hypertension was made, and he was noted to be prediabetic based on a random blood sugar measurement taken at that time. The event served as a catalyst for a lifestyle change, including sobriety for the last two weeks from alcohol?primarily vodka with Sprite. He suspects a connection between previous alcohol consumption and his current health issues. Arrhythmia was described as nonspecific following an EKG at the emergency room. The patient also reported a lifelong sensitivity to nitrates, leading to migraines. He noted improvement by avoiding alcohol and nitrate-rich foods. He has a familial predisposition to prediabetes, as noted with his father and uncle. He has a history of alcohol use disorder but has abstained recently. 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 The patient recently experienced a fall resulting in a muscle knot, affecting his sleep routine and comfort. He takes Adderall, which has contributed to insomnia, and is considering alternative ADHD medications. A previous adverse reaction to a COVID vaccine was noted, involving significant discomfort requiring an ambulance call. He has mild major depression is follow by Psychiatry which has improved. PFSH Medical History (Updated 08/05/24 @ 19:43 by Mouna Torres MD) Severe recurrent major depression Alcoholism Neuropathy Surgical History Right hand fracture Family History Mother Skin cancer Father No problems noted. Maternal Grandfather Lung cancer Maternal Grandmother Lung cancer Social History (Updated 08/05/24 @ 17:57 by Mouna Torres MD) Housing: Apartment Alcohol intake: former Patient Tobacco Use Status: Former Tobacco user e-Cigarette/Vaping Use: Currently Using service: No Current occupational status: unemployed Cognitive needs: No Hearing needs: No Vision needs: No Questionnaire PHQ-9 Over the last 2 weeks, how often have you been bothered by any of the following problems? 1. Little interest or pleasure in doing things: several days 2. Feeling down, depressed, or hopeless: several days 3. Trouble falling or staying asleep, or sleeping too much: several days 4. Feeling tired or having little energy: several days 5. Poor appetite or overeating: several days 6. Feeling bad about yourself - or that you are a failure or have let yourself or your family down: not at all 7. Trouble concentrating on things, such as reading the newspaper or watching television: several days 8. Moving or speaking so slowly that other people could have noticed. Or the opposite - being so fidgety or restless that you have been moving around a lot more than usual: several days 9. Thoughts that you would be better off or of hurting yourself in some way: not at all Total score: 7 Depression Screening Interpretation: Positive Depression Screening Follow-up: Existing condition, In treatment, Community Mental Health Worker F/U and Follow-up Visit Requested Depression Screening Done: Yes 76728 - PHQ-9 Billing: Yes Source: Developed by Drs. Vitor Palacios, Latanya Romero, Lizandro Barone and colleagues, with an educational rinku from [employer]. Thrive Questionnaire Date Thrive assessed: 08/05/24 I am a: Patient What is your living situation today?: I choose not to answer this question Within the past 12 months, did the food you bought not last and you didn't have the money to get more?: I choose not to answer this question Within the past 12 months, did you worry whether your food would run out before you got money to buy more?: Sometimes True Do you have trouble paying for medicines?: No Do you have trouble getting transportation to medical appointments?: No Do you have trouble paying your heating and electricity bill?: Yes Do you have trouble taking care of your child, family member or friend?: I choose not to answer this question Do you have trouble with day-to-day activities such as bathing, preparing meals, shopping, managing finances, etc.?: Yes Are you currently unemployed and looking for a job?: I choose not to answer this question Are you interested in more education?: Yes Please select the resources that you would like help with: Utilities, Care for elder or disabled and Education Currently or been in a relationship where the following occur: No concerns reported THRIVE Score: 2 AUDIT C Alcohol Use Questionnaire (AUDIT-C) 1. How often do you have a drink containing alcohol?: Never Total Score: 0 Score Reviewed/Action Taken: No SRINIVAS-7 AMB Questionnaire SRINIVAS-7 Date SRINIVAS - 7 assessed: 08/05/24 Feeling nervous, anxious, or on edge: 1 = Several days Not being able to stop or control worryin = Several days Worrying too much about different things: 1 = Several days Trouble relaxin = Several days Being so restless that it is hard to sit still: 1 = Several days Becoming easily annoyed or irritable: 2 = More than half the days Feeling afraid as if something awful might happen: 1 = Several days Total SRINIVAS-7 score (0-4 normal; 5-9 mild; 10-14 moderate; 15-21 severe): 8 Source: Developed by Drs. Vitor Palacios, Latanya Romero, Lizandro Barone and colleagues, with an educational rinku from [employer]. SRINIVAS-7 Assessment Billing SRINIVAS-7 Assessment Tool: SRINIVAS-7 Assessment 27962 Review of Systems Const All systems reviewed & are unremarkable except as noted in HPI and below Card Denies chest pain at rest, Denies chest pain with activity, Denies edema, Denies irregular heart rhythm, Denies claudication, Denies dyspnea, Denies dyspnea on exertion, Denies orthopnea, Denies paroxysmal nocturnal dyspnea and Denies slow heart rate Resp Denies cough, Denies dyspnea and Denies dyspnea on exertion GI Denies abdominal pain, Denies change in bowel habits, Denies excessive flatus, Denies nausea and Denies vomiting Denies urinary hesitancy, Denies urinary incontinence and Denies urinary urgency Musc Denies abnormal gait, Denies atrophy, Denies deformity and Denies limited range of motion Skin/Breast Denies bleeding lesions, Denies changing lesions and Denies rash Neuro Denies abnormal gait and Denies lack of coordination Physical exam (Primary Care) Vital Signs: Last Vital Signs BP 130/80 08/05/24 17:45 BMI result Body Mass Index 31.9 Tobacco/Smoking Status: Tobacco use Status Tobacco use date assessed 08/05/24 08/05/24 17:49 Patient Tobacco Use Status Former Tobacco user 08/05/24 17:57 e-Cigarette/Vaping Use Currently Using 08/05/24 17:57 PHQ-9: PHQ-9 Score PHQ-9: Total score 7 08/05/24 17:59 Depression Screening Interpretation: Positive Depression Screening Follow-up: Existing condition, In treatment, Community Mental Health Worker F/U and Follow-up Visit Requested Thrive Assessment: Date of Thrive Assessment Date Thrive assessed 08/05/24 08/05/24 17:49 Currently or been in a relationship where the following occur: No concerns reported HENNV Head: Yes normal to inspection, Yes normocephalic and Yes atraumatic Ears: external ears normal Eyes General: appearance normal, both eyes and all related structures Eyelids: Yes eyelids normal Conjunctivae: conjunctivae normal Neck Neck: Yes normal visual inspection and Yes supple Resp Effort & Inspection: normal respiratory effort Auscultation: clear to auscultation bilaterally Cardio Jugular venous distension: no JVD Rate: regular rate Rhythm: regular rhythm Heart sounds: S1 normal heart sound present and S2 normal heart sound present GI Inspection: Yes normal to inspection Palpation (GI): Soft to palpation and nontender Auscultation: normal bowel sounds Skin General skin exam: no rashes or lesions noted Neuro General: no focal motor deficits Extrem General: Yes full ROM Psych Appearance: grossly normal Coding Level of Care Code Est Pt Level 3 (22595) Est Pt Prev Care 18-39y(23745) Diagnoses Physical exam Z00.00 Alcohol use disorder, severe, dependence F10.20 Arrhythmia I49.9 Shoulder pain M25.519 Mild major depression F32.0 Additional Codes SRINIVAS-7 Assessment Billing - SRINIVAS-7 Assessment Tool: SRINIVAS-7 Assessment 34143 ([id number]) PHQ-9 - 57440 - PHQ-9 Billing: Yes ([id number]) Time Spent (min) 32 Assessment & Plan Assessment & Plan (1) Physical exam: Code(s): Z00.00 - Encounter for general adult medical examination without abnormal findings Category: Medical (2) Alcohol use disorder, severe, dependence: Code(s): F10.20 - Alcohol dependence, uncomplicated Category: Medical (3) Arrhythmia: Code(s): I49.9 - Cardiac arrhythmia, unspecified Category: Medical (4) Shoulder pain: Code(s): M25.519 - Pain in unspecified shoulder Category: Medical (5) Mild major depression: Code(s): F32.0 - Major depressive disorder, single episode, mild Category: Medical Plan - Arrange blood work to reassess blood glucose and evaluate fasting levels. - Repeat EKG to monitor arrhythmia status. - Prescribe prednisone short-term to manage the musculoskeletal pain secondary to fall. - Consultation with psychiatry regarding ADHD medication alternatives to Adderall. - Continuing abstinence from alcohol and monitoring blood pressure periodically. Patient was informed and verbally consented to the use of an ambient scribe for clinic note documentation during this visit. I informed the patient of the need to repeat fasting blood glucose levels to confirm prediabetes diagnosis as well as perform an EKG to review the arrhythmia status. I discussed the effects of alcohol on hypertension and the benefits experienced from recent abstinence. I cautioned him on nitrate sensitivity exacerbating migraines. We considered alternative ADHD medications given insomnia concerns from current Adderall use. Prednisone was suggested for the short-term relief of muscular pain with awareness of side effects. The importance of lifestyle adjustments in managing hypertension and prediabetes was reiterated. The patient was advised to follow up with psychiatry regarding his ADHD treatment approach. Orders: Orders ECG 12 lead EKG Today I49.9 - Cardiac arrhythmia, unspecified Comprehensive [place]. Panel Fast Today Z00.00 - Encounter for general adult medical examination without abnormal findings Lipid Panel Today Z00.00 - Encounter for general adult medical examination without abnormal findings Medications: New prednisone Take 4 tabs for 2 days, then 3 tabs for 2 days, then 2 tabs for 2 days, then 1 tab for 2 days 10 mg PO DIRECTED 20 tabs 0RF 8 days Patient Instructions: - Schedule and complete the requested blood work and EKG tests. - Continue to abstain from alcohol consumption. - Avoid foods high in nitrates to prevent migraines. - Take prednisone as prescribed and use primarily for a few days. - Discuss ADHD medication changes with your psychiatrist. - Monitor and record blood pressure readings regularly. - Seek immediate medical attention if new or worsening symptoms arise.
[2024-08-05 17:45] VITALS: BP 130/80; BMI 31.9
== END 2024-08-05 18:07 | disposition home or self-care (01) ==
PROVIDERS: PCP Internal Medicine; Visit Provider Internal Medicine
DX: Z00.00 Encounter for general adult medical examination without abnormal findings (principal); I49.9 Cardiac arrhythmia, unspecified; F10.20 Alcohol dependence, uncomplicated; F32.0 Major depressive disorder, single episode, mild

== ENCOUNTER → 2024-08-05 17:40 | Outpatient (BNVA) | payer OTHER, SELFPAY | PROVIDERS: PCP Internal Medicine; Visit Provider Internal Medicine | DX: Z00.00 Encounter for general adult medical examination without abnormal findings (principal); F10.20 Alcohol dependence, uncomplicated; I49.9 Cardiac arrhythmia, unspecified; F32.0 Major depressive disorder, single episode, mild; Z87.891 Personal history of nicotine dependence | CPT/HCPCS: 96127; 99212; 99395 ==

== ENCOUNTER 2024-10-08 09:44 | Outpatient (REF) | payer OTHER, SELFPAY ==
--- NOTE | 2024-10-08 09:48 | ECG_ITS ---
Test Reason : cardiac arrhythmia Blood Pressure : */* mmHG Vent. Rate : 84 BPM Atrial Rate : 84 BPM P-R Int : 144 ms QRS Dur : 98 ms QT Int : 360 ms P-R-T Axes : 44 80 67 degrees QTcB Int : 425 ms Normal sinus rhythm Incomplete right bundle branch block Borderline ECG When compared with ECG of 24-Jan-2023 10:33, No significant change was found Referred By: Mouna Torres Electronically Signed By: LOUISE LEMUS
[2024-10-08 10:18] LABS: MANUAL DIFF FLAG NO
[2024-10-08 10:45] LABS: Basophils Absolute Auto 0.1 X10*3/uL (0.0-0.2); Basophils Percent Auto 0.6 % (0-2); Eosinophils Absolute Auto 0.4 X10*3/uL (0.0-0.4); Eosinophils Percent Auto 4.7 % (0-4); Hematocrit 40.5 % (42.0-52.0); Hemoglobin 13.5 g/dl (14.0-18.0); Imm Gran Abs Auto 0.03 X10*3/uL (0.00-0.03); Imm Gran Pct Auto 0.3 % (0.0-0.4); Lymphocytes Absolute Auto 1.3 X10*3/uL (1.2-4.9); Lymphocytes Percent Auto 13.9 % (20-40); Mean Corpuscular HGB Conc 33.3 g/dl (31.0-36.0); Mean Corpuscular Hemoglobin 32.6 pg (27.0-33.0); Mean Corpuscular Volume 97.8 fL (80.0-98.0); Mean Platelet Volume 10.5 fL (9.4-12.4); Monocytes Absolute Auto 0.9 X10*3/uL (0.1-1.2); Neutrophils Absolute Auto 6.4 x10*3/uL (2.0-8.3); Neutrophils Percent Auto 70.5 % (45-73); Platelet Count 319 X10*3/uL (160-400); Red Blood Count 4.14 X10*6/uL (4.60-5.80); Red Cell Distribution Width 12.3 % (11.0-16.0)
[2024-10-08 11:24] LABS: Alanine Aminotransferase 21 U/L (0-40); Alkaline Phosphatase 59 U/L (39-117); Anion Gap 10 (12-20); Aspartate Amino Transferase 24 U/L (5-37); Bilirubin Direct 0.2 mg/dL (0.0-0.5); Bilirubin Total 0.5 mg/dL (0.0-1.0); Blood Urea Nitrogen 7 mg/dL (9-16); Calcium 9.3 mg/dL (8.4-10.2); Carbon Dioxide 28 mmol/L (22-29); Chloride 105 mmol/L (96-108); Cholesterol 189 mg/dL (<200); Estimated Glomerular Filt Rate > 60; Glucose Fasting 86 mg/dL (60-99); Glucose Random 86 mg/dL (60-115); HDL Cholesterol 55 mg/dL (>40); LDL Cholesterol Calculated 127 mg/dL (<100); Potassium 4.2 mmol/L (3.3-5.1); Sodium 139 mmol/L (135-145); Total Protein 6.9 g/dL (6.5-8.0); Triglycerides 37 mg/dL (<150)
[2024-10-08 11:41] LABS: Gamma Glutamyl Transpeptidase 21 U/L (11-51)
[2024-10-08 11:50] LABS: Vitamin B12 682 pg/mL (200-900)
[2024-10-16 18:02] LABS: Vitamin B1 14 nmol/L (8-30)
== END 2024-10-08 09:45 | disposition home or self-care (01) ==
LOC: HO.LAB 09:44
PROVIDERS: PCP Internal Medicine; Visit Provider Internal Medicine
DX: Z00.00 Encounter for general adult medical examination without abnormal findings (principal); I49.9 Cardiac arrhythmia, unspecified; I45.19 Other right bundle-branch block; G62.9 Polyneuropathy, unspecified; F10.20 Alcohol dependence, uncomplicated
CPT/HCPCS: 36415; 80053; 80061; 82248; 82530; 82607; 82746; 82977; 84425; 85025; 93005

== ENCOUNTER → 2024-10-08 09:48 | Outpatient (BNV) | payer OTHER, SELFPAY | PROVIDERS: PCP Internal Medicine; Visit Provider Internal Medicine | DX: I45.10 Unspecified right bundle-branch block (principal) | CPT/HCPCS: 93010 ==

== ENCOUNTER 2025-01-28 16:02 | Outpatient (AMB) | payer OTHER, SELFPAY ==
--- NOTE | 2025-01-28 16:08 | MHC.PC.OV ---
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 Accompanied by: Self / Same As Patient Allergies No Known Allergies Allergy (Verified 01/28/25 17:01) Medication List - Last Reconciled 01/28/25 by Mouna Torres MD clonazepam 1 mg PO BID prednisone 10 mg PO DIRECTED 8 days Tobacco use date assessed: 01/28/25 Dental Screening Dental Screen Date: 01/28/25 Did you have a dental visit in the last 12 months?: No Did you have a dental problem in the last 6 months where you did not have access to dental care?: No Was dental information given to patient?: No HPI HPI Comments History of Present Illness Details This is a 29-year-old male with mild major depression follow by counseling and psychiatry, anxiety and alcohol use disorder that comes today still complaining of some palpitations. He does have right bundle karen block and has cardiology appointment next month. Who order some labs. No chest pain or shortness on breath. Doing well with medications. Started drinking alcohol last week but is willing to stop. [facility] Medical History Severe recurrent major depression Alcoholism Neuropathy Surgical History Right hand fracture Family History Mother Skin cancer Father No problems noted. Maternal Grandfather Lung cancer Maternal Grandmother Lung cancer Social History (Updated 01/28/25 @ 17:08 by Mouna Torres MD) Housing: Apartment Alcohol intake: current Alcohol intake frequency: a few times a week Alcohol type: hard liquor Patient Tobacco Use Status: Former Tobacco user e-Cigarette/Vaping Use: Currently Using service: No Current occupational status: unemployed Cognitive needs: No Hearing needs: No Vision needs: No Questionnaire PHQ-9 Over the last 2 weeks, how often have you been bothered by any of the following problems? 1. Little interest or pleasure in doing things: several days 2. Feeling down, depressed, or hopeless: several days 3. Trouble falling or staying asleep, or sleeping too much: several days 4. Feeling tired or having little energy: several days 5. Poor appetite or overeating: several days 6. Feeling bad about yourself - or that you are a failure or have let yourself or your family down: not at all 7. Trouble concentrating on things, such as reading the newspaper or watching television: several days 8. Moving or speaking so slowly that other people could have noticed. Or the opposite - being so fidgety or restless that you have been moving around a lot more than usual: several days 9. Thoughts that you would be better off or of hurting yourself in some way: not at all Total score: 7 Depression Screening Interpretation: Positive Depression Screening Follow-up: Existing condition, In treatment, Community Mental Health Worker F/U and Follow-up Visit Requested Depression Screening Done: Yes 26564 - PHQ-9 Billing: Yes Source: Developed by Drs. Vitor Palcaios, Latanya Romero, Lizandro Barone and colleagues, with an educational rinku from [employer]. Thrive Questionnaire Date Thrive assessed: 01/28/25 I am a: Patient What is your living situation today?: I choose not to answer this question Within the past 12 months, did the food you bought not last and you didn't have the money to get more?: I choose not to answer this question Within the past 12 months, did you worry whether your food would run out before you got money to buy more?: Sometimes True Do you have trouble paying for medicines?: No Do you have trouble getting transportation to medical appointments?: No Do you have trouble paying your heating and electricity bill?: Yes Do you have trouble taking care of your child, family member or friend?: I choose not to answer this question Do you have trouble with day-to-day activities such as bathing, preparing meals, shopping, managing finances, etc.?: Yes Are you currently unemployed and looking for a job?: I choose not to answer this question Are you interested in more education?: Yes Currently or been in a relationship where the following occur: No concerns reported THRIVE Score: 2 AUDIT C Alcohol Use Questionnaire (AUDIT-C) 1. How often do you have a drink containing alcohol?: 2-3 times a week 2. How many drinks containing alcohol do you have on a typical day when you are drinking?: 7 to 9 3. How often do you have six or more drinks on one occasion?: Monthly Total Score: 8 Score Reviewed/Action Taken: No SRINIVAS-7 AMB Questionnaire SRINIVAS-7 Date SRINIVAS - 7 assessed: 01/28/25 Feeling nervous, anxious, or on edge: 1 = Several days Not being able to stop or control worryin = Several days Worrying too much about different things: 1 = Several days Trouble relaxin = Several days Being so restless that it is hard to sit still: 1 = Several days Becoming easily annoyed or irritable: 2 = More than half the days Feeling afraid as if something awful might happen: 1 = Several days Total SRINIVAS-7 score (0-4 normal; 5-9 mild; 10-14 moderate; 15-21 severe): 8 Source: Developed by Drs. Vitor Palacios, Latanya Romero, Lizandro Barone and colleagues, with an educational rinku from [employer]. SRINIVAS-7 Assessment Billing SRINIVAS-7 Assessment Tool: SRINIVAS-7 Assessment 15557 Review of Systems Const All systems reviewed & are unremarkable except as noted in HPI and below Card Denies chest pain at rest, Denies chest pain with activity, Denies edema, Denies irregular heart rhythm, Denies claudication, Denies dyspnea, Denies dyspnea on exertion, Denies orthopnea, Denies paroxysmal nocturnal dyspnea and Denies slow heart rate Resp Denies cough, Denies dyspnea and Denies dyspnea on exertion GI Denies abdominal pain, Denies change in bowel habits, Denies excessive flatus, Denies nausea and Denies vomiting Physical exam (Primary Care) Vital Signs: Last Vital Signs Temp 99 F 01/28/25 16:11 Pulse 96 01/28/25 16:11 Resp 18 01/28/25 16:11 BP 100/60 01/28/25 16:11 Pulse Ox 96 01/28/25 16:11 Oxygen Delivery Method Room Air 01/28/25 16:11 BMI result Body Mass Index 25.7 Tobacco/Smoking Status: Tobacco use Status Tobacco use date assessed 01/28/25 01/28/25 16:12 Patient Tobacco Use Status Former Tobacco user 01/28/25 17:08 e-Cigarette/Vaping Use Currently Using 01/28/25 17:08 PHQ-9: PHQ-9 Score PHQ-9: Total score 7 01/28/25 17:05 Depression Screening Interpretation: Positive Depression Screening Follow-up: Existing condition, In treatment, Community Mental Health Worker F/U and Follow-up Visit Requested Thrive Assessment: Date of Thrive Assessment Date Thrive assessed 01/28/25 01/28/25 16:12 Currently or been in a relationship where the following occur: No concerns reported Resp Effort & Inspection: normal respiratory effort Auscultation: clear to auscultation bilaterally Cardio Jugular venous distension: no JVD Rate: regular rate Rhythm: regular rhythm Heart sounds: S1 normal heart sound present and S2 normal heart sound present Extrem General: Yes full ROM Coding Level of Care Code Est Pt Level 4 (02139) Complex EM visit Add On G2211 Diagnoses Alcohol use disorder, severe, dependence F10.20 Mild major depression F32.0 SRINIVAS (generalized anxiety disorder) F41.1 Incomplete right bundle branch block I45.10 Additional Codes SRINIVAS-7 Assessment Billing - SRINIVAS-7 Assessment Tool: SRINIVAS-7 Assessment 15845 ([id number]) PHQ-9 - 01352 - PHQ-9 Billing: Yes ([id number]) Time Spent (min) 21 Assessment & Plan Assessment & Plan (1) Alcohol use disorder, severe, dependence: Code(s): F10.20 - Alcohol dependence, uncomplicated Category: Medical (2) Mild major depression: Code(s): F32.0 - Major depressive disorder, single episode, mild Category: Medical (3) SRINIVAS (generalized anxiety disorder): Code(s): F41.1 - Generalized anxiety disorder Category: Medical (4) Incomplete right bundle branch block: Code(s): I45.10 - Unspecified right bundle-branch block Category: Medical Plan Labs ordered. Follow-up with psychiatry. Follow-up with Cardiology. Orders: Orders Magnesium Today I49.9 - Cardiac arrhythmia, unspecified Thyroid Stimulating Hormone Today I49.9 - Cardiac arrhythmia, unspecified Comprehensive Met. Panel Today I49.9 - Cardiac arrhythmia, unspecified Vitamin D 25-OH Total Today E55.9 - Vitamin D deficiency, unspecified Complete Blood Count Auto Diff Today I49.9 - Cardiac arrhythmia, unspecified
[2025-01-28 16:11] VITALS: BP 100/60; PULSE 96; RESP 18; TEMP 37.2; O2SAT 96; BMI 25.7
== END 2025-01-28 17:17 | disposition home or self-care (01) ==
LOC: HO.HMCH 16:03
PROVIDERS: PCP Internal Medicine; Visit Provider Internal Medicine
DX: F10.20 Alcohol dependence, uncomplicated (principal); F32.0 Major depressive disorder, single episode, mild; F41.1 Generalized anxiety disorder; I45.10 Unspecified right bundle-branch block

== ENCOUNTER → 2025-01-28 16:02 | Outpatient (BNVA) | payer OTHER, SELFPAY | PROVIDERS: PCP Internal Medicine; Visit Provider Internal Medicine | DX: F32.0 Major depressive disorder, single episode, mild (principal); R00.2 Palpitations; I45.10 Unspecified right bundle-branch block; F10.20 Alcohol dependence, uncomplicated; F41.1 Generalized anxiety disorder | CPT/HCPCS: 96127; 99212 ==

== ENCOUNTER 2025-02-04 15:07 | Outpatient (AMB) | payer OTHER, SELFPAY ==
[2025-02-04 15:09] VITALS: BP 120/70; PULSE 107; BMI 25.9
--- NOTE | 2025-02-04 15:09 | MHC.OFFVIS ---
Vital Signs 02/04/25 15:09 Height 5 ft 6.54 in Weight 163 lb 2.273 oz BMI 25.9 BP 120/70 Blood Pressure Location Lt brachial Position Sitting Pulse 107 H Intake Visit Reasons: REDYE HAND/Jaime/Unspecified right bundle-branch block Intake Note: New patient dx rbbb c/o palpation Seating And Mobility Technologist Required: No Allergies No Known Allergies Allergy (Verified 01/28/25 17:01) HPI Comments Details: Andrei was referred here for evaluation of EKG. There were concerned about abnormal EKG and reported as incomplete right bundle-branch block. Patient has longstanding history of ADD since age of 3 years and was on escalating doses of Adderall. He eventually weaned himself of Adderall about 3 weeks ago and today he took Adderall again because of anxiety and family situation and stress. He also has prior history of general anxiety disorder. He also has strong history of heavy alcohol use up to 6 months ago he said he used to drink 25 drinks a day and then weaned himself off and then has started drinking again up to 5 drinks a day. He said he remains pretty anxious. He is also concerned and notice that his heart rate remains elevated. He comes concerned about heart problems. He has no obvious heart symptoms including no symptoms of palpitations. He says occasionally feels lightheaded. He is trying to come off his dependence on alcohol and also treat his ADD without medications. He denies any chest pain or shortness of breath. No orthopnea, PND. FORMERLY [facility], LATER [facility] Medical History Severe recurrent major depression Alcoholism Neuropathy Surgical History Right hand fracture Family History Mother Skin cancer Father No problems noted. Maternal Grandfather Lung cancer Maternal Grandmother Lung cancer Social History Housing: Apartment Alcohol intake: current Alcohol intake frequency: a few times a week Alcohol type: hard liquor Patient Tobacco Use Status: Former Tobacco user e-Cigarette/Vaping Use: Currently Using service: No Current occupational status: unemployed Cognitive needs: No Hearing needs: No Vision needs: No Review of Systems Const Denies chills, Denies daytime sleepiness, Reports fatigue, Denies fever(s), Denies frequent falls, Denies poor appetite, Denies snoring, Denies stops breathing during sleep, Denies weakness, Denies weight gain and Denies weight loss Eyes Denies loss of vision ENT Reports dizziness and Denies hearing loss Card Reports chest pain, Denies claudication, Denies leg edema, Denies lightheadedness, Reports palpitations, Denies dyspnea, Denies dyspnea on exertion and Denies orthopnea Resp Denies cough, Denies excessive phlegm production, Denies dyspnea, Denies dyspnea on exertion, Denies snoring and Denies wheezing GI Reports abdominal pain, Denies hematochezia, Denies change in bowel habits, Denies nausea and Denies vomiting Denies dysuria and Denies urinary frequency Musc Denies arthralgias, Denies muscle weakness and Denies numbness Skin/Breast Denies nail changes and Denies rash Neuro Denies Abnormal speech present, Reports dizziness, Denies frequent falls, Denies loss of vision, Denies memory loss, Denies numbness and Denies weakness Psych Denies depression and Denies memory loss Endo Reports fatigue and Reports palpitations Pito/Lymph Reports easy bruising and Reports other (anemia) Aller/Immun Denies wheezing Physical Exam Vital Signs: Last Vital Signs Pulse 107 H 02/04/25 15:09 BP 120/70 02/04/25 15:09 BMI result Body Mass Index 25.9 Const General: cooperative, no acute distress, alert, awake and anxious Nutritional Appearance: thin Orientation/consciousness: patient oriented x3 Limitations: no limitations HEENT Head: Yes normocephalic and Yes atraumatic Neck Neck: Yes trachea midline, Yes supple and Yes no JVD Resp Effort & Inspection: normal respiratory effort Auscultation: clear to auscultation bilaterally Cardio Jugular venous distension: no JVD Rate: tachycardic Rhythm: regular rhythm Heart sounds: S1 normal heart sound present, S2 normal heart sound present, no click, no gallops, no murmurs and no rubs GI Auscultation: normal bowel sounds Skin General skin exam: no rashes or lesions noted Neuro General: patient oriented x3 and no focal motor deficits Speech: No Abnormal speech present Extrem General: Yes no clubbing, cyanosis or edema Psych Appearance: grossly normal Office Procedures EKG Details: EKG shows sinus tachycardia with rightward axis [id number], Complete Assessment & Plan Assessment & Plan (1) Sinus tachycardia: Code(s): R00.0 - Tachycardia, unspecified Category: Medical Plan: Patient was sinus tachycardia which most likely appears to be secondary to his dependence on alcohol as well as Adderall therapy and underlying general anxiety disorder. However will check for any endocrine abnormality with plasma metanephrines as well as TSH level. I have advised him to come office stimulant therapy as well as alcohol cessation. He said he is going to try to do that. If he persists with significant tachycardia at that point time and/or dizziness may consider pharmacotherapy although I think this needs to be treated with behavioral therapy. Also advised him to increase his water and salt intake. I will obtain an echocardiogram to rule out any evidence of alcoholic cardiomyopathy given his heavy use of alcohol and any other congenital abnormalities. Also suggest a Holter monitor to assess for overall heart rate response over 24 hours including at nighttime. No pharmacotherapy is recommended. Stress reduction therapy should be pursued. Will follow up in the clinic in 6 weeks time. Thank you for allowing me to partake in his care Orders: Orders TSH reflex Free T4 Today R00.0 - Tachycardia, unspecified Metanephrines, Plasma Today R00.0 - Tachycardia, unspecified CA echo transthoracic complete Today R00.0 - Tachycardia, unspecified ECG 3 day holter monitor Today R00.0 - Tachycardia, unspecified Coding Level of Care Code New Pt Level 4 (51415) Complex EM visit Add On G2211 Diagnoses Sinus tachycardia R00.0 CPT Codes EKG - CPT: 34279-[id number], Complete ([id number])
== END 2025-02-04 15:40 | disposition home or self-care (01) ==
LOC: HO.HCS 15:08
PROVIDERS: PCP Internal Medicine; Visit Provider Internal Medicine Cardiovascular Disease
DX: R00.0 Tachycardia, unspecified (principal)
CPT/HCPCS: 93010; 99204

== ENCOUNTER → 2025-02-04 15:07 | Outpatient (BNVA) | payer OTHER, SELFPAY | PROVIDERS: PCP Internal Medicine; Visit Provider Internal Medicine Cardiovascular Disease | DX: R00.0 Tachycardia, unspecified (principal) | CPT/HCPCS: 93005; 99202 ==

== ENCOUNTER 2025-03-19 15:25 | Outpatient (AMB) | payer OTHER, SELFPAY ==
[2025-03-19 15:38] VITALS: BP 102/62; PULSE 97; BMI 25.3
--- NOTE | 2025-03-19 15:38 | MHC.OFFVIS ---
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 Required: No Accompanied by: Other Relationship Allergies acetaminophen (From Tylenol Severe Allergy) Allergy (Intermediate, Verified 03/19/25 15:42) Stomach Upset diphenhydramine (From Tylenol Severe Allergy) Allergy (Intermediate, Verified 03/19/25 15:42) Stomach Upset Medication List - Last Reconciled 03/19/25 by Cheyenne Conrad NP-C atomoxetine 40 mg PO QAM clonazepam 1 mg PO BID dextroamphetamine-amphetamine 30 mg (Adderall) 30 mg PO BID HPI HPI 2 mth f/up: Details: Andrei is a 30-year-old male with past medical history of alcohol abuse, ADD, abnormal EKG with incomplete right bundle branch block and sinus tachycardia who presents for follow-up. On last visit an echocardiogram, Holter monitor and lab tests were ordered however not completed by him. Today he reports that he has been doing better overall since his last visit in January. He tells me he is coming off Adderall in his feeling better. He is using supplements instead and they are controlling his ADD symptoms. When he takes Adderall he does believe this causes rapid heartbeat. He is trying to stop alcohol and has had none in the last 4 days. He has no chest discomfort, shortness of breath, lightheadedness. His heart palpitations have lessened. He says he did not get a call from centralized scheduling for the tests. Girlfriend Tom is present. FORMERLY [facility] Medical History Severe recurrent major depression Alcoholism Neuropathy Surgical History Right hand fracture Family History Mother Skin cancer Father No problems noted. Maternal Grandfather Lung cancer Maternal Grandmother Lung cancer Social History Housing: Apartment Alcohol intake: current Alcohol intake frequency: a few times a week Alcohol type: hard liquor Patient Tobacco Use Status: Former Tobacco user e-Cigarette/Vaping Use: Currently Using service: No Current occupational status: unemployed Cognitive needs: No Hearing needs: No Vision needs: No Review of Systems Const All systems reviewed & are unremarkable except as noted in HPI and below Denies daytime sleepiness, Denies difficulty sleeping, Denies snoring, Denies stops breathing during sleep and Denies weakness Card Denies chest pain, Denies rapid heart rate, Denies irregular heart rhythm, Denies claudication, Denies leg edema, Denies lightheadedness, Denies palpitations, Denies dyspnea, Denies dyspnea on exertion, Denies orthopnea, Denies paroxysmal nocturnal dyspnea and Denies slow heart rate Resp Denies cough, Denies dyspnea, Denies dyspnea on exertion and Denies snoring GI Denies no additional complaints, Denies hematochezia, Denies change in stool character and Denies dyspepsia Musc Denies abnormal gait, Denies muscle weakness and Denies numbness Neuro Denies abnormal gait, Denies numbness and Denies weakness Endo Denies palpitations Physical Exam Vital Signs: Last Vital Signs Pulse 97 03/19/25 15:38 BP 102/62 03/19/25 15:38 BMI result Body Mass Index 25.3 Const General: cooperative, healthy appearing, comfortable and no acute distress Orientation/consciousness: patient oriented x3 Neck Neck: Yes normal visual inspection Resp Effort & Inspection: normal respiratory effort Auscultation: clear to auscultation bilaterally, no crackles, no rales, no rhonchi and no wheezes Cardio Rate: regular rate Rhythm: regular rhythm Heart sounds: S1 normal heart sound present, S2 normal heart sound present, no gallops, no murmurs and no rubs Neuro General: patient oriented x3 Extrem General: Yes normal to inspection Psych Appearance: grossly normal Mental Status: mental status grossly normal Speech and movement: Normal speech and movement present Assessment & Plan Assessment & Plan (1) Sinus tachycardia: Code(s): R00.0 - Tachycardia, unspecified Category: Medical Plan: Sinus tachycardia noted on last visit. Thought to be related to ADD, Adderall and alcohol use. Feeling better now that back on Adderall and alcohol. Labs including TSH, plasma metanephrines are pending. Holter monitor and echocardiogram orders are in place. I gave him the number for centralized scheduling and instructed to have test done. Plan to call him with test results. If there are concerning abnormalities we will arrange for a cardiology follow-up. If test results are within normal limits then will plan for cardiology PRN. (2) Incomplete right bundle branch block: Code(s): I45.10 - Unspecified right bundle-branch block Category: Medical Plan: EKG shows incomplete right bundle branch block. Holter and echocardiogram pending. Likely benign finding at this time. (3) Alcohol use disorder, severe, dependence: Code(s): F10.20 - Alcohol dependence, uncomplicated Category: Medical Plan: No alcohol use in the last 4 days. Encouraged ongoing alcohol cessation. (4) ADD (attention deficit disorder): Code(s): F98.8 - Other specified behavioral and emotional disorders with onset usually occurring in childhood and adolescence Category: Medical Plan: Continue with management as directed by ADD provider. Plan Time spent on chart review, documentation, interview and assessment. Coding Level of Care Code Est Pt Level 3 (90424) Complex EM visit Add On G2211 Diagnoses Sinus tachycardia R00.0 Incomplete right bundle branch block I45.10 Alcohol use disorder, severe, dependence F10.20 ADD (attention deficit disorder) F98.8 Time Spent (min) 22
== END 2025-03-19 16:18 | disposition home or self-care (01) ==
LOC: HO.HCS 15:26
PROVIDERS: PCP Internal Medicine; Visit Provider Nurse Practitioner Family
DX: R00.0 Tachycardia, unspecified (principal); I45.10 Unspecified right bundle-branch block; F10.20 Alcohol dependence, uncomplicated; F98.8 Other specified behavioral and emotional disorders with onset usually occurring in childhood and adolescence
CPT/HCPCS: 99213

== ENCOUNTER → 2025-03-19 15:25 | Outpatient (BNVA) | payer OTHER, SELFPAY | PROVIDERS: PCP Internal Medicine; Visit Provider Nurse Practitioner Family | DX: I45.10 Unspecified right bundle-branch block (principal); R00.0 Tachycardia, unspecified; F10.20 Alcohol dependence, uncomplicated; F98.8 Other specified behavioral and emotional disorders with onset usually occurring in childhood and adolescence | CPT/HCPCS: 99212 ==